=== PATIENT | female | born 1975 | race Two or more races ===

== ENCOUNTER → 2019-07-09 | Day surgery (SDC) | payer OTHER ==
[~2019-07-09] MED LIST: FUSION PLUS CA1 EACH PO; MEGESTROL ACETA40 MG PO
== END | disposition home or self-care (01) ==
LOC: ADM 07-04 13:30 → CIR.AMB 06:35
DX: N80.2 Endometriosis of fallopian tube (principal); D25.0 Submucous leiomyoma of uterus

== ENCOUNTER 2021-03-04 17:42 | Emergency (ER) | payer OTHER ==
[~2021-03-04] VITALS: Ht 154.9 cm; Wt 66.7 kg
[2021-03-04] MEDS ORDERED: PEPCID AC20 MG (18:09)
[2021-03-04] MEDS ORDERED: LEVOTHYROXINE25 MCG (18:09)
[2021-03-04] MEDS ORDERED: DICLEGIS DR 101 EACH (18:09)
[2021-03-04] MEDS ORDERED: OBTREX DHA COM1 EACH (18:09)
== END 2021-03-04 22:34 | disposition home or self-care (01) ==
LOC: ER 17:42
DX: O20.0 Threatened abortion (principal)

== ENCOUNTER → 2021-06-27 10:03 | Outpatient (CLI) | payer OTHER ==
[~2021-06-27 10:03] MED LIST changes: +DICLEGIS DR 101 EACH; +LEVOTHYROXINE25 MCG; +OBTREX DHA COM1 EACH; +PEPCID AC20 MG
== END | disposition home or self-care (01) ==
LOC: LAB 10:03
PROVIDERS: ATTEND Obstetrics & Gynecology Maternal & Fetal Medicine
DX: Z20.828 Contact with and (suspected) exposure to other viral communicable diseases (principal)

== ENCOUNTER 2021-08-30 17:34 | Inpatient (IN) | payer OTHER ==
[~2021-08-30] VITALS: Ht 154.9 cm; Wt 80.7 kg
[~2021-08-30 17:34] MED LIST changes: -PRENATAL CAPLE1 EAC1 PO
[2021-08-30] MEDS ORDERED: PRENATAL CAPLE1 EAC1 PO (19:21)
== END 2021-09-03 12:22 | disposition home or self-care (01) | DRG 785 ==
LOC: LDR 17:34 → OB/GYN 17:34
PROVIDERS: ADMIT Obstetrics & Gynecology Maternal & Fetal Medicine; ATTEND Obstetrics & Gynecology Maternal & Fetal Medicine
PROC: 0UB70ZZ Excision of Bilateral Fallopian Tubes, Open Approach (ICD-10-PCS; 2021-08-31)
PROC: 4A1HXFZ Monitoring of Products of Conception, Cardiac Rhythm, External Approach (ICD-10-PCS; 2021-08-31)
PROC: 10D00Z1 Extraction of Products of Conception, Low, Open Approach (ICD-10-PCS; principal; 2021-08-31 14:30)
DX: O14.14 Severe pre-eclampsia complicating childbirth (principal); O32.1XX0 Maternal care for breech presentation, not applicable or unspecified; Z3A.35 35 weeks gestation of pregnancy; Z37.0 Single live birth; Z30.2 Encounter for sterilization

== ENCOUNTER → 2021-08-30 | Outpatient (CLI) | payer OTHER ==
[~2021-08-30] MED LIST changes: +PRENATAL CAPLE1 EAC1 PO
== END | disposition home or self-care (01) ==
LOC: NST 14:41
PROVIDERS: ATTEND Obstetrics & Gynecology Maternal & Fetal Medicine
DX: Z34.83 Encounter for supervision of other normal pregnancy, third trimester (principal)